=== PATIENT | female | born 1980 | race Caucasian/White ===

== ENCOUNTER 2017-01-14 16:00 | Emergency (ER) | payer OTHER ==
[2017-01-14 16:07] VITALS: BP 138/90; PULSE 70; RESP 16; TEMP 97.9; O2SAT 98
--- NOTE | 2017-01-14 16:25 | EDPHY ---
H & P Stated Complaint: Clunked head on counter;? LOC Time Seen by Provider: 01/14/17 16:15 HPI/ROS: CHIEF COMPLAINT: Head injury HISTORY OF PRESENT ILLNESS: Patient was at work within the past hour when she stood up, striking her head on a [place] bar top. She reports falling backward landing on her back. She has a headache on the top of the head. No nausea or vomiting. No dizziness. She says she feels kind of fatigued and tired. She has no neck pain. No injury elsewhere on her person. The pain is mild to moderate. It is worse with palpation. Improved at rest. No radiation complaints. No sensory or motor changes at any point on her person. No amnesia leading up to the event. No other associated complaints or modifying factors. No use of anticoagulants. REVIEW OF SYSTEMS: Ten systems reviewed and are negative unless otherwise noted in the HPI PERTINENT MEDICAL HISTORY: Denies any medical history EXAMINATION General Appearance: Alert, no distress Head: normocephalic, mild hematoma on the top of the scalp. No laceration. No abrasion. No Rushing sign. No raccoon eyes. No deformity. Eyes: Pupils equal and round, no conjunctival pallor or injection. EOMs intact. No nystagmus. ENT, Mouth: Mucous membranes moist Neck: Normal inspection, supple, non-tender. No crepitus, step-off or deformity. Respiratory: No retractions or respiratory distress. Cardiovascular: Regular rate. Pulses intact distally. Back: non-tender, no bony abnormalities Neurological: GCS 15. A&O, nonfocal, normal gait. No pronator drift. No dysmetria. Normal heel walk. Normal toe walk. Skin: Warm and dry, no rash. No lacerations or abrasions. Mild scalp hematoma Extremities: Nontender, no pedal edema. Symmetric range of motion. Psychiatric: Mood and affect normal DIFFERENTIAL DIAGNOSES: Including but not limited to closed head injury, concussion, contusion, intracranial hemorrhage cerebral edema MDM: 4:20 p.m. Mild closed head injury. Patient stood up and struck her head on a counter top work. No loss of conscious. No bruising around the eyes or behind the ears. No rhinorrhea. No vomiting. No changes in vision. Neuro exam is fully intact. She is not amnestic to the events preceding the closed head injury. Based on [place] CT Head Rule she does not want a CT scan. I did offer CT scan of the head and she has declined. She does not want any imaging or any test. She just wanted to be examined. I informed her that she should return to the emergency department for worsening headache, nausea, vomiting, changes in vision , neck pain. She is comfortable with this plan and discharged home, fully ambulatory in stable condition. SUPERVISION: This patient was independently evaluated without direct examination by the attending physician. Case was discussed with attending physician. Source: Patient Exam Limitations: No limitations - Personal History Current Tetanus Diphtheria and Acellular Pertussis (TDAP): Yes - Medical/Surgical History Other PMH: healthy - Social History Smoking Status: Current some day smoker Constitutional: Initial Vital Signs Temperature (C) 97.9 F 01/14/17 16:02 Heart Rate 70 01/14/17 16:02 Respiratory Rate 16 01/14/17 16:02 Blood Pressure 138/90 H 01/14/17 16:02 O2 Sat (%) 98 01/14/17 16:02 O2 Delivery Mode Room Air Allergies/Adverse Reactions: No Known Allergies Allergy (Unverified 01/14/17 16:07) Home Medications: Medication Instructions Recorded NK [No Known Home Meds] 01/14/17 Departure - Departure Disposition: Home, Routine, Self-Care Clinical Impression: Closed head injury Qualifiers: Encounter type: initial encounter Qualified Code(s): S09.90XA - Unspecified injury of head, initial encounter Condition: Good Instructions: Concussion (ED), Head Injury (ED) Additional Instructions: Return to the emergency department for worsening headache, neck pain, changes in vision, vomiting. Follow up with primary care physician Referrals: NONE *PRIMARY CARE P,. [Primary Care Provider] - As per Instructions Randall Carlson MD [Medical Doctor] - As per Instructions Stand Alone Forms: Work Comp Follow Up, Work Excuse
== END 2017-01-14 16:36 | disposition home or self-care (01) ==
DX: S09.90XA Unspecified injury of head, initial encounter (principal); F17.200 Nicotine dependence, unspecified, uncomplicated; W22.8XXA Striking against or struck by other objects, initial encounter; Y92.69 Other specified industrial and construction area as the place of occurrence of the external cause; Y99.0 Civilian activity done for income or pay; Y93.89 Activity, other specified